=== PATIENT | female | born 1950 | race Caucasian/White ===

== ENCOUNTER 2017-04-09 06:31 | Outpatient (CLI) ==
[2014-05-30 08:29] VITALS: BMI 20.7
[2017-04-09 06:58] LABS: BUN/CREATININE RATIO 16.43; CALCIUM 9.4 mg/dL (8.2-10.2); CREATININE 0.73 mg/dL (0.60-1.30)
== END 2017-04-09 06:32 | disposition home or self-care (01) ==
LOC: LAB 06:31
PROVIDERS: ATTEND Internal Medicine
DX: E87.6 Hypokalemia (principal)
CPT/HCPCS: 36415; 80048

== ENCOUNTER 2017-10-02 10:32 | Outpatient (CLI) | payer OTHER ==
[2014-05-30 08:29] VITALS: BMI 20.7
--- NOTE | 2017-10-02 10:50 | DI ---
Exam: Two x-rays of the chest. Comparison: 08/19/2015. Reason for exam: Cough. FINDINGS: No pneumothorax, pleural effusion, or focal consolidation. The cardiac silhouette is not enlarged. The imaged osseous structures appear grossly unremarkable without acute fracture. Old gra nulomas disease is seen within the lung parenchyma. Impression: No acute cardiopulmonary process.
== END 2017-10-02 10:33 | disposition home or self-care (01) ==
LOC: RAD 10:32
PROVIDERS: ATTEND Nurse Practitioner Family
DX: R05 Cough (principal)

== ENCOUNTER 2017-10-25 13:59 | Outpatient (CLI) ==
[2014-05-30 08:29] VITALS: BMI 20.7
--- NOTE | 2017-10-25 15:51 | DI ---
EXAM: Lumbar spine five views HISTORY: Low back pain, fall COMPARISON: 09/16/2012 TECHNIQUE: Five views lumbar spine were performed including oblique views FINDINGS: Sacroiliac joints intact. Sacral arcuate intact. Vertebral bodies normal height. No fra cture. No subluxation. Multilevel marginal osteophyte formation. Mild intervertebral disc space at narrowing L3-L4 and L4-L5. Multilevel facet arthrosis IMPRESSION: 1. No fracture or subluxation . 2. Chronic discogenic degenerative disease and facet arthrosis.
--- NOTE | 2017-10-25 15:52 | DI ---
EXAM: Sacrum and coccyx three view HISTORY: Low back pain COMPARISON: None TECHNIQUE: Three-view sacrum and coccyx were performed FINDINGS: The sacroiliac joints intact. Sacral arcuate lines intact. No fracture or dislocation id entified. No focal soft tissue abnormality. IMPRESSION: No fracture or dislocation identified.
== END 2017-10-25 14:00 | disposition home or self-care (01) ==
LOC: RAD 13:59
PROVIDERS: ATTEND Nurse Practitioner Family
DX: M54.5 Low back pain (principal)

== ENCOUNTER 2017-11-22 08:15 | Outpatient (RCR) | payer OTHER ==
[2014-05-30 08:29] VITALS: BMI 20.7
--- NOTE | 2017-11-09 16:50 | RS.OPPTEV2 ---
Date of Note: 11/09/17 Visit #: 1 Date of Evaluation: 11/09/17 Payer Source: [employer] Date of Onset/Injury/Change in Status: 10/19/17 Surgery Performed?: No Treatment Diagnosis: Lumbosacral pain, recent fall History of Condition/Mechanism of Injury:: Patient reports falling in the parking lot at work on 10/19/17. Prior Level of Function.....Patient was independent with: ADL's, Self Care, Work /Vocation, Caregiving, Ambulation/Mobility, Community Integration/Access Current Subjective/complaints:: Patient reports right hip/low back pain. States she is much better, but still has pain. States she is taking Ibuprofen PRN. She denies tingling or numbness in the LE's. She was having radiating symptoms into the right LE, but reports none lately. Reports difficulty finding a comfortable position when lying down. States she usually stays active. She reports pain usually increases with increased activity. Medical History Medical History: Cancer (Breast) Surgical History Comments:: Bilateral ankle surgery, bilateral mastectomy, Hysterectomy Smoking Status: Never smoker Diagnostic Testing/Imaging:: X ray of lumbar spine on 10/25/17 reveals no fracture or subluxation. Chronic discogenic degenerative disease with facet arthrosis. Hx Home Medications: Ibuprofen PRN Pain Assessment - Pain Description Pain Location: right hip/low back region Current Pain Intensity: 3-5/10 Worst Pain Intensity: not quantified Functional Outcome Measure Oswestry LBP: 22 - G Codes & Severity Modifier G Codes & Modifier: NA Source of G Code score: NA Observation - Observation Posture: Forward Head (slight), Rounded Shoulders (slight) Gait - Gait Pattern General Gait Pattern Observation: No Deviations/Normal - ROM Lumbar Flexion: Hand reach to patellae Sidebending to Left: Reach to Mid-thigh Sidebending to Right: Reach to Mid-thigh Lumbar Spine ROM Limitations: Soft Tissue Tightness - Strength Comments: Bilateral LE strength 5/5 throughout. - Special Tests CHRIS Test: Negative Left, Negative Right SLR Test: Negative Left, Negative Right Rob's Sign Test: Negative Left, Negative Right Seated Dural Stretch Test: Negative Left, Positive Right SI Joint Compression: Negative Palpation Comments:: Demonstrates moderate increased muscle tone along the lower lumbar paraspinals. Reports tenderness with palpation along the lower lumbar paraspinasl and just above the right SI joint. Sensation - Sensation Right Lower Extremity: Intact/Normal Left Lower Extremity: Intact/Normal Additional Comments: Additional Comments: SLR in supine 45-50 degrees bilaterally. LE leg lengths equal in supine. - Treatment Modality: Ultrasound Parameters/Method Applied: X 1.5 w/cm2 continuous X 12 mins to right lumbar parspinals, Right SI joint and superior gluteal musculature. Patient Position: Left Sidelying Interventions - Exercise/Activities/Manual Therapy Exercises/Activities: Patient instructed in HS, piriformis, and lower trunk rotation stretch. Manual Therapy: NA HOME EXERCISE PROGRAM: HS, piriformis, and lower trunk rotation stretch. - Charges Timed Code Treatment Minutes: 12 mins Total Treatment Time: 45 mins Procedures billed for this date of service:: XU [place], US EVALUATION COMPLEXITY LEVEL EVALUATION COMPLEXITY LEVEL: HISTORY: Low, EXAM OF BODY SYSTEMS: Low, CLINICAL PRESENTATION: Low, CLINICAL DECISION MAKING: Low Assessment Assessment: Patient presents with right sided lumbosacral pain since falling on 10/19/17. She demonstrates muscle guarding along the right lumbar paraspinals and demonstrates a positive seated SLR on the right, indicating likely inflammation. She demonstrates good potential to benefit from modalities to reduce inflammation and pain, and stretching to improve AROM. Patient Education: Education of diagnosis, Body/Joint mechanics, Home Exercise Program, Education of Plan of Care Rehab Potential: Good Short Term Goals Goal #1: Pt independent and compliant with initial HEP. Goal to be met by: 11/19/17 Goal #2: Tenderness at right lumbosacral region decreased to minimal. Goal to be met by: 11/23/17 Goal #3: Pt to report average pain <3/10. Goal to be met by: 11/23/17 Correction Goals Goal #1: Score on Oswestry LBP scale improved to 10 or less. Goal to be met by: 12/14/17 Goal #2: Pt to perform daily activities with no back/hip pain. Goal to be met by: 12/14/17 Goal #3: Pt knows HEP and to continue exercises following D/C. Goal to be met by: 12/14/17 Goal #4: Pt to tolerate lying down/sleep without back/hip pain. Goal to be met by: 12/14/17 Plan - Treatment to be Provided Procedures: Therapeutic Exercises, Therapeutic Activity, Manual Therapy, Patient Education Modalities: Electrical Stimulation, Ultrasound/Phonophoresis, Class IV Laser, Cryotherapy, Hot Packs - Treatment Plan Frequency: 2-3 X week Duration: 3 weeks ORDER # VISITS AND/OR THROUGH DATE: 12/14/17 - Treatment Code (1) Lumbosacral pain Code(s): M54.5 - LOW BACK PAIN Comments: M54.5 (2) Fall due to ice or snow Code(s): W00.9XXA - UNSPECIFIED FALL DUE TO ICE AND SNOW, INITIAL ENCOUNTER Qualifiers: Encounter type: subsequent encounter Qualified Code(s): W00.9XXD - Unspecified fall due to ice and snow, subsequent encounter
--- NOTE | 2017-11-14 09:24 | RS.OPPTDN ---
Subjective Date of Note: 11/14/17 Visit #: 2 Date of Evaluation: 11/09/17 Payer Source: [employer] Treatment Diagnosis: Lumbosacral pain, recent fall Current Subjective/complaints:: Patient says treatment at eval helped tremendously. Says her L side is a little sore from the stretching she is doing at home. - Treatment Modality: Ultrasound Parameters/Method Applied: 1.5 w/cm2 continuous x 12 mins mostly to the R lumbar paraspinals and superior gluteal region. Patient Position: Left Sidelying - Heat/Cryotherapy Treatment: Hot Pack (15 mins to the bilateral lumbar and SI joint region in L sidelying) Interventions - Exercise/Activities/Manual Therapy Exercises/Activities: Patient receives passive stretching to the SKTC, HS, piriformis, fig 4. Began pillow squeezes and isometric hip abd in hooklying x 10. Total minutes of Exercise: 13 Manual Therapy: NA HOME EXERCISE PROGRAM: HS, piriformis, and lower trunk rotation stretch. - Charges Timed Code Treatment Minutes: 25 Total Treatment Time: 40 Procedures billed for this date of service:: hp, u/s, ex Assessment: Patient has initiated HEP and has experienced mild soreness. She felt significant relief after her first u/s and also with todays session. She demo tight HS and piriformis bilaterally and will benefit from continued stretching, modalities, and progress with pelvic stability. Patient Education: Education of diagnosis, Body/Joint mechanics, Home Exercise Program Patient demonstrates compliance with HEP?: Yes Short Term Goals Goal #1: Pt independent and compliant with initial HEP. Goal to be met by: 11/19/17 Progress towards Goal:: Progressing Goal #2: Tenderness at right lumbosacral region decreased to minimal. Goal to be met by: 11/23/17 Progress towards Goal:: Progressing Goal #3: Pt to report average pain <3/10. Goal to be met by: 11/23/17 Regional Loss Prevention Manager Goals Goal #1: Score on Oswestry LBP scale improved to 10 or less. Goal to be met by: 12/14/17 Goal #2: Pt to perform daily activities with no back/hip pain. Goal to be met by: 12/14/17 Goal #3: Pt knows HEP and to continue exercises following D/C. Goal to be met by: 12/14/17 Goal #4: Pt to tolerate lying down/sleep without back/hip pain. Goal to be met by: 12/14/17 Plan PLAN OF CARE EXPIRES ON:: 12/14/17 ORDER # VISITS AND/OR THROUGH DATE: 12/14/17 PLAN: Continue for modalities and therex to improve R sided back pain and provide support and strength at the trunk and hips.
--- NOTE | 2017-11-16 09:29 | RS.OPPTDN ---
Subjective Date of Note: 11/16/17 Visit #: 3 Date of Evaluation: 11/09/17 Payer Source: [employer] Treatment Diagnosis: Lumbosacral pain, recent fall Current Subjective/complaints:: Patient says therapy has helped a lot. She says she is having periods of no pain and then when pain is present, it is really low. She says she has been performing HEP. She says she has had some soreness to the L leg. - Treatment Modality: Ultrasound Parameters/Method Applied: continuous @ 1.5 w/cm2 x 10 mins to R lumbar paraspinals Patient Position: Left Sidelying - Heat/Cryotherapy Treatment: Hot Pack (20 mins to the lumbar and R SI in sidelying) Interventions - Exercise/Activities/Manual Therapy Exercises/Activities: Patient receives passive stretching to the SKTC, HS, piriformis, fig 4. Continued with pillow squeezes and isometric hip abd/added flex in hooklying x 10. Total minutes of Exercise: 16 Manual Therapy: NA HOME EXERCISE PROGRAM: HS, piriformis, and lower trunk rotation stretch. - Charges Timed Code Treatment Minutes: 26 Total Treatment Time: 46 Procedures billed for this date of service:: hp, estim (un), ex Assessment: Patient continues to experience little to no pain at the R lumbar and SI region. Mostly, this is present with mopping. She has begun to have mild soreness to the L, but possibly from beginning stretches and exercises for that side as well. Patient Education: Body/Joint mechanics, Home Exercise Program Patient demonstrates compliance with HEP?: Yes Short Term Goals Goal #1: Pt independent and compliant with initial HEP. Goal to be met by: 11/19/17 Progress towards Goal:: Progressing Comments:: ongoing Goal #2: Tenderness at right lumbosacral region decreased to minimal. Goal to be met by: 11/23/17 Progress towards Goal:: Progressing Goal #3: Pt to report average pain <3/10. Goal to be met by: 11/23/17 Progress towards Goal:: Met Route Aide Goals Goal #1: Score on Oswestry LBP scale improved to 10 or less. Goal to be met by: 12/14/17 Goal #2: Pt to perform daily activities with no back/hip pain. Goal to be met by: 12/14/17 Goal #3: Pt knows HEP and to continue exercises following D/C. Goal to be met by: 12/14/17 Goal #4: Pt to tolerate lying down/sleep without back/hip pain. Goal to be met by: 12/14/17 Plan PLAN OF CARE EXPIRES ON:: 12/14/17 ORDER # VISITS AND/OR THROUGH DATE: 12/14/17 PLAN: Patient to continue x 1 more week to progress therex.
--- NOTE | 2017-11-20 13:22 | RS.OPPTDN ---
Subjective Date of Note: 11/20/17 Visit #: 4 Date of Evaluation: 11/09/17 Payer Source: Work[employer]'s [employer] Treatment Diagnosis: Lumbosacral pain, recent fall Current Subjective/complaints:: Patient says her pain is decreasing and localizing to a small area pointing to the R PSIS. She reports exercises feel good and she is gaining flexibility with hamstrings. Pain Assessment - Pain Description Pain Location: sore, but smaller area at the R PSIS - Treatment Modality: Ultrasound Parameters/Method Applied: continuous @ 1.5 w/cm2 x 12 mins to R PSIS/SI joint Patient Position: Left Sidelying - Heat/Cryotherapy Treatment: Hot Pack (R SI and PSIS x 20 mins sidelying) Interventions - Exercise/Activities/Manual Therapy Exercises/Activities: Patient continues to receive passive stretching to the SKTC, HS, piriformis, fig 4, and . Continued with pillow squeezes and isometric hip abd/added flex in hooklying x 10. Began bridge x 10 reps. Total minutes of Exercise: 16 Manual Therapy: NA HOME EXERCISE PROGRAM: HS, piriformis, and lower trunk rotation stretch. - Charges Timed Code Treatment Minutes: 26 Total Treatment Time: 46 Procedures billed for this date of service:: hp, u/s, ex Assessment: Patient continues to respond well with admitting improved R sided back pain and appears to be isolated to a half dollar sized area to the R PSIS. She is able to perform all trunk stability with good resistance and painfree. Good hamstring and piriformis length demo today. Patient Education: Body/Joint mechanics, Home Exercise Program Patient demonstrates compliance with HEP?: Yes Short Term Goals Goal #1: Pt independent and compliant with initial HEP. Goal to be met by: 11/19/17 Progress towards Goal:: Progressing Goal #2: Tenderness at right lumbosacral region decreased to minimal. Goal to be met by: 11/23/17 Progress towards Goal:: Met Goal #3: Pt to report average pain <3/10. Goal to be met by: 11/23/17 Progress towards Goal:: Met Skilled Nursing Goals Goal #1: Score on Oswestry LBP scale improved to 10 or less. Goal to be met by: 12/14/17 Goal #2: Pt to perform daily activities with no back/hip pain. Goal to be met by: 12/14/17 Progress towards goal: Progressing Goal #3: Pt knows HEP and to continue exercises following D/C. Goal to be met by: 12/14/17 Progress towards goal: Progressing Goal #4: Pt to tolerate lying down/sleep without back/hip pain. Goal to be met by: 12/14/17 Plan PLAN OF CARE EXPIRES ON:: 12/14/17 ORDER # VISITS AND/OR THROUGH DATE: 12/14/17 PLAN: continue x 2 more sessions progressing trunk stability.
--- NOTE | 2017-11-22 14:28 | RS.OPPTDN ---
Subjective Date of Note: 11/22/17 Visit #: 5 Date of Evaluation: 11/09/17 Payer Source: Work[employer]'s [employer] Treatment Diagnosis: Lumbosacral pain, recent fall Current Subjective/complaints:: Patient says she continues to see significant improvement in R pain. She says she has periods that she does not have pain. Describes it as very light currently and isolated to the R SI joint. - Treatment Modality: Ultrasound Parameters/Method Applied: continuous @ 1.5 w/cm2 x 10 mins to the R SI joint Patient Position: Left Sidelying - Heat/Cryotherapy Treatment: Hot Pack (15 mins to the R SI joint sidelying) Interventions - Exercise/Activities/Manual Therapy Exercises/Activities: Patient continues to receive passive stretching to the SKTC, HS, piriformis, fig 4, and lower trunk rotation. Continued with ball squeezes and isometric hip abd/added flex in hooklying x 10. Continued with bridge x 10 reps. SLR to the R x 10. Total minutes of Exercise: 16 Manual Therapy: NA HOME EXERCISE PROGRAM: HS, piriformis, and lower trunk rotation stretch. - Charges Timed Code Treatment Minutes: 26 Total Treatment Time: 41 Procedures billed for this date of service:: hp, u/s, ex Assessment: Patient experiencing periods of no pain and when present, it is very low. 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 Patient should progress trunk stability and hip strength. Flexibility is now WNL for piriformis and HS. Patient Education: Education of diagnosis, Body/Joint mechanics, Home Exercise Program Patient demonstrates compliance with HEP?: Yes Short Term Goals Goal #1: Pt independent and compliant with initial HEP. Goal to be met by: 11/19/17 Progress towards Goal:: Progressing Goal #2: Tenderness at right lumbosacral region decreased to minimal. Goal to be met by: 11/23/17 Progress towards Goal:: Met Goal #3: Pt to report average pain <3/10. Goal to be met by: 11/23/17 Progress towards Goal:: Met Snf Goals Goal #1: Score on Oswestry LBP scale improved to 10 or less. Goal to be met by: 12/14/17 Comments: Reassess next week Goal #2: Pt to perform daily activities with no back/hip pain. Goal to be met by: 12/14/17 Progress towards goal: Progressing Goal #3: Pt knows HEP and to continue exercises following D/C. Goal to be met by: 12/14/17 Progress towards goal: Progressing Goal #4: Pt to tolerate lying down/sleep without back/hip pain. Goal to be met by: 12/14/17 Progress towards goal: Progressing Plan PLAN OF CARE EXPIRES ON:: 12/14/17 ORDER # VISITS AND/OR THROUGH DATE: 12/14/17 PLAN: Patient to continue x 1 more session
== END 2017-12-05 ==
PROVIDERS: ATTEND Nurse Practitioner Family
DX: M54.5 Low back pain (principal); W10.1XXD Fall (on)(from) sidewalk curb, subsequent encounter

== ENCOUNTER 2018-02-13 06:55 | Outpatient (CLI) ==
[2017-10-25 14:06] VITALS: BMI 20.7
== END 2018-02-13 06:56 | disposition home or self-care (01) ==
LOC: LAB 06:55
PROVIDERS: ATTEND Internal Medicine
DX: E03.8 Other specified hypothyroidism (principal)
CPT/HCPCS: 36415; 84443